=== PATIENT | female | born 1990 | race Caucasian/White ===

== ENCOUNTER 2021-08-05 20:22 | Emergency (ER) | payer OTHER ==
[2021-08-05 21:13] VITALS: TEMP 99
[2021-08-05] MEDS ORDERED: SODIUM CHLORIDE 0.9% 1,000 ML IV STA (22:05)
[2021-08-05] MEDS ORDERED: diphenhydrAMINE 50 MG/ML 1 ML VIAL IVP STA ×2 (22:05→23:46)
[2021-08-05] MEDS ORDERED: ONDANSETRON 4 MG/2 ML VIAL IVP STA (22:05)
[2021-08-05] MEDS ORDERED: KETOROLAC 15 MG/ML 1 ML VIAL IVP STA (22:05)
--- NOTE | 2021-08-05 22:05 | ED ---
General Adult HPI - General Chief complaint: Headache Stated complaint: Headache,Vomiting Time Seen by Provider: 08/05/21 21:55 Source: patient, family, RN notes reviewed, old records reviewed Mode of arrival: ambulatory Limitations: no limitations - History of Present Illness Initial comments: This is a well-appearing 31-year-old female, sitting on the edge of bed with family member at bedside. Patient states that she developed a right temporal headache on Sunday and was seen at urgent care and given a "headache cocktail "she states that she felt better just for a couple days and then ended up in ER at [facility]. She states at that time they gave her IV fluids and a CAT scan and then discharged her home. She continues to have headaches similar to her previous headaches. Mom is at bedside states that there is a family history of migraine headaches. Patient states that she does have photophobia with nausea and vomiting but denies any fevers. She has been tested for coronavirus and negative. -: week(s) (1) Location: head (right bahai) Radiation: non-radiation Severity scale (1-10): 8 Quality: sharp Consistency: intermittent Associated Symptoms: other (Photophobia) - Related Data Home Medications Medication Instructions Recorded Confirmed SUMAtriptan SUCCINATE [Imitrex] 1 tab PO DAILY 03/09/15 03/09/15 Previous Rx's Medication Instructions Recorded Ibuprofen [Motrin] 600 mg PO Q8HR PRN #20 tab 03/10/15 predniSONE 50 mg PO DAILY #5 tab 08/05/21 Allergies Allergy/AdvReac Type Severity Reaction Status Date / Time hydrocodone Allergy Rash/Hives Verified 08/05/21 21:14 Review of Systems ROS Statement: Those systems with pertinent positive or pertinent negative responses have been documented in the HPI. ROS Other: All systems not noted in ROS Statement are negative. Past Medical History Past Medical History: No Reported History Additional Past Medical History / Comment(s): migraines History of Any Multi-Drug Resistant Organisms: None Reported Past Surgical History: Adenoidectomy, Tonsillectomy Past Psychological History: No Psychological Hx Reported Smoking Status: Never smoker Past Alcohol Use History: None Reported Past Drug Use History: None Reported General Exam Limitations: no limitations General appearance: alert, in no apparent distress Head exam: Present: atraumatic, normocephalic, normal inspection, other (facial skin sensitivity on the right side) Eye exam: Present: normal appearance, PERRL, EOMI. Absent: scleral icterus, conjunctival injection, periorbital swelling Pupils: Present: normal accommodation ENT exam: Present: normal exam, normal oropharynx, other (poor dentition, broken teeth, no evidence of abscess) Neck exam: Present: normal inspection. Absent: meningismus, full ROM, lymphadenopathy, thyromegaly Respiratory exam: Present: normal lung sounds bilaterally. Absent: respiratory distress, wheezes, rales, rhonchi, stridor, chest wall tenderness, accessory muscle use Cardiovascular Exam: Present: regular rate, normal rhythm GI/Abdominal exam: Present: soft Back exam: Present: normal inspection. Absent: tenderness, CVA tenderness (R), CVA tenderness (L), rash noted Neurological exam: Present: alert, oriented X3, normal gait Psychiatric exam: Present: normal affect, normal mood. Absent: agitated, anxious, flat affect, manic Skin exam: Present: warm, dry, intact, normal color. Absent: rash, cyanosis, diaphoretic Course Vital Signs 08/05/21 08/05/21 21:11 23:08 Temperature 99.0 F Pulse Rate 81 71 Respiratory 20 18 Rate Blood Pressure 160/82 131/83 O2 Sat by Pulse 99 100 Oximetry Medical Decision Making - Medical Decision Making 31-year-old female presents to the emergency room with complaints of headaches. Patient has been seen at other urgent cares and emergency rooms over the past week. She states that she had a CAT scan at [facility] that was inconclusive. She has a family history of headaches. Patient states that this is similar to her previous headaches with photophobia. She denies any visual changes. She has no focal neurological deficits, no fevers, denies any IV drug use. No weight loss no history of cancers. According to medical records patient has been prescribed Imitrex for migraine headaches in the past. She was referred to her primary care doctor. Mom states that she sees Dr. Askew for her migraines and will try to get her into see this doctor. Patient will be prescribed prednisone directed to take Tylenol and return if new or concerning symptoms. Disposition Clinical Impression: Headache Disposition: HOME SELF-CARE Condition: Good Instructions (If sedation given, give patient instructions): Acute Headache (ED) Additional Instructions: Take prednisone as prescribed and do not take Motrin while taking prednisone. Tylenol every 4-6 hours 650 mg for pain. Keep a headache diary of how often and symptoms associated with the headache. Follow-up with the primary care doctor or neurologist for persistent migraine headaches. Return to the emergency room with any new or discerning symptoms. Take Tylenol and or Motrin as needed for pain until seen by primary care doctor who may put you on maintenance medication for migraine headaches. Prescriptions: predniSONE 50 mg PO DAILY #5 tab Is patient prescribed a controlled substance at d/c from ED?: No Referrals: Rosalinda Terry MD [REFERRING] - 1-2 days Time of Disposition: 23:48
[2021-08-05] MEDS ORDERED: fentaNYL (PF) 50 MCG/ML 2 ML AMP IVP STA (23:07)
[2021-08-05 23:09] VITALS: BP 131/83; PULSE 71; RESP 18
== END 2021-08-06 00:10 | disposition home or self-care (01) ==
LOC: EC 20:22
DX: G43.909 Migraine, unspecified, not intractable, without status migrainosus (principal); Z79.899 Other long term (current) drug therapy
CPT/HCPCS: 99283; 96374; 96375; 96376; 96361; J1200; J2405; J3010; J1885